=== PATIENT | male | born 1990 | race Two or more races ===

== ENCOUNTER 2018-02-10 10:04 | Inpatient (IN) | payer BC ==
[2018-02-10 10:32] VITALS: BMI 24.7
--- NOTE | 2018-02-10 12:31 | HP ---
Admission [facility] Chief Complaint: REHAB TX FOR DRUG ADDICTION Allergies/Adverse Reactions: Allergies Allergy/AdvReac Type Severity Reaction Status Date / Time No Known Allergies Allergy Verified 02/10/18 10:46 History of Present Illness: 27 Y/O MALE WITH A HX OF HEROIN,CRACK AND MARIJUANA DEPENDENCE SEEKING REHAB TX. PT REPORTS LAST USE OF OPIATE WAS 2 WEEKS AGO AND U-TOX IS NEGATIVE TODAY. PT REPORTS HE WAS REFERRED TO [place] BY HIS RESIDENCE- [facility] [place] [address] [place] [address]. Exam Limitations: No Limitations - Ebola screening Have you traveled outside of the country in the last 21 days: No (N) Have you had contact with anyone from an Ebola affected area: No Have you been sick,other than usual withdrawal symptoms: No Do you have a fever: No - Review of Systems Constitutional: No Symptoms Reported EENT: reports: Blurred Vision (DUE TO COGENTIN), Nose Congestion, Dental Problems (MISSING TEETH/CAVITY/ROOT CANAL) Respiratory: reports: No Symptoms reported Cardiac: reports: No Symptoms Reported GI: reports: Constipated : reports: Dysuria Musculoskeletal: reports: No Symptoms Reported Integumentary: reports: No Symptoms Reported Neuro: reports: No Symptoms reported Endocrine: reports: No Symptoms Reported Hematology: reports: No Symptoms Reported Psychiatric: reports: Orientated x3, Anxious, Depressed Other Systems: Reviewed and Negative Patient History - Patient Medical History Hx Anemia: No Hx Asthma: No Hx Chronic Obstructive Pulmonary Disease (COPD): No Hx Cardiac Disorders: No Hx Hypertension: No HX Cerebrovascular Accident: No Hx Seizures: No Hx Diabetes: No Hx Gastrointestinal Disorders: No Hx Genitourinary Disorders: No Hx Sexually Transmitted Disorders: No Hx Renal Disease (ESRD): No Hx Human Immunodeficiency Virus (HIV): No (NEGATIVE HX; WANTS TESTING) Hx Hepatitis C: No Hx Depression: Yes (ON MEDS) Hx Suicide Attempt: No (DENIES S/I) Hx Bipolar Disorder: No Hx Schizophrenia: Yes (WITH ROBINSON) - Patient Surgical History Past Surgical History: No Hx Neurologic Surgery: No Hx Cataract Extraction: No Hx Cardiac Surgery: No Hx Lung Surgery: No Hx Breast Surgery: No Hx Breast Biopsy: No Hx Abdominal Surgery: No Hx Appendectomy: No Hx Cholecystectomy: No Hx Genitourinary Surgery: No Hx Orthopedic Surgery: No Anesthesia Reaction: No - PPD History Previous Implant?: Yes Documented Results: Negative w/o proof Implanted On Prior [facility] Admission?: No PPD to be Administered?: Yes - Reproductive History Patient is a Female of Child Bearing Age (11 -55 yrs old): No (MALE) - Smoking Cessation Smoking history: Current every day smoker Have you smoked in the past 12 months: Yes Aproximately how many cigarettes per day: 10 Hx Chewing Tobacco Use: No Initiated information on smoking cessation: Yes 'Breaking Loose' booklet given: 02/03/18 - Substance & Tx. History Hx Alcohol Use: No (DENIES) Hx Substance Use: Yes (HEROIN/COCAINE/MARIJUANA) Substance Use Type: Cocaine, Heroin, Marijuana Hx Substance Use Treatment: No (NEVER BEEN IN TREATMENT) - Substances Abused Heroin Route: Inhalation Frequency: 1-3 times last 30 days Amount used: 1 bag Age of first use: Date of Last Use: 02/04/18 Crack Route: Smoking Frequency: Daily Amount used: 1/4 gm. Age of first use: 26 Date of Last Use: 02/06/18 Marijuana Route: Smoking Frequency: Daily Amount used: $5 Age of first use: Date of Last Use: 02/08/18 Family Disease History - Family Disease History Family History: Unable to Obtain Admission Physical Exam BHS - Vital Signs Vital Signs: Vital Signs - 24 hr 02/10/18 10:25 Temperature 97.0 F L Pulse Rate 65 Respiratory 18 Rate Blood Pressure 115/67 - Physical General Appearance: Yes: No Apparent Distress, Irritable, Anxious HEENTM: Yes: EOMI, Normocephalic, GILMAR, Pharynx Normal Respiratory: Yes: Chest Non-Tender, Lungs Clear, Normal Breath Sounds, No Respiratory Distress Neck: Yes: No masses,lesions,Nodules, Supple, Trachea in good position Breast: Yes: Breast Exam Deferred Cardiology: Yes: Regular Rhythm, Regular Rate, S1, S2 Abdominal: Yes: Normal Bowel Sounds, Non Tender, Flat, Soft Genitourinary: Yes: Other (N/C) Back: Yes: Within Normal Limits Musculoskeletal: Yes: full range of Motion, Gait Steady Extremities: Yes: Normal Range of Motion, Non-Tender Neurological: Yes: cast associate II-XII NML intact, Fully Oriented, Alert, Motor Strength 5/5 Integumentary: Yes: Dry, Warm Lymphatic: Yes: Within Normal Limits - Diagnostic (1) Uncomplicated opioid abuse Current Visit: Yes Status: Chronic (2) Cocaine dependence, uncomplicated Current Visit: Yes Status: Chronic (3) Cannabis dependence, uncomplicated Current Visit: Yes Status: Chronic (4) History of psychiatric disorder Current Visit: Yes Status: Acute Cleared for Admission [facility] - Detox or Rehab Claeared for Rehab Admission: Yes [facility] Breath Alcohol Content Breath Alcohol Content: 0 Urine Drug Screen - Results Urine Drug Screen Results: THC-Marijuana, ELISEO-Cocaine
[2018-02-10] MEDS ORDERED: MAGNESIUM HYDROX 2400MG/30ML ORAL SUSPENSION 30 ML CUP PO PRN (12:44)
[2018-02-10] MEDS ORDERED: MAGNESIUM CITRATE 300 ML BOTTLE PO PRN (12:44)
[2018-02-10] MEDS ORDERED: MAG HYDROX/AL HYDROX/SIMETH 30 ML UNIT-DOSE CUP PO PRN (12:44)
[2018-02-10] MEDS ORDERED: MENTHOL/PHENOL 1 EACH UD MM PRN (12:44)
[2018-02-10] MEDS ORDERED: ACETAMINOPHEN 325 MG TABLET (FP) PO PRN (12:44)
[2018-02-10] MEDS ORDERED: guaiFENesin/D-METHORPHAN HB 10 ML UNIT-DOSE CUPS PO PRN (12:44)
[2018-02-10] MEDS ORDERED: P-EPHED 60MG/TRIPROLIDI 2.5MG TABLET PO PRN (12:44)
[2018-02-10] MEDS ORDERED: LOPERAMIDE HCL 2 MG CAPSULE PO PRN (12:44)
--- NOTE | 2018-02-10 15:01 | PN ---
[facility] Progress Note Note: Psychiatrist note: Called by nursing staff for newly admitted patient from [facility]. External medication from pharmacy claims show scripts filled for following psychotropic medications: Depakote 500 mg po BID, Cogentin 2 mg po BID on 01/21/18 and Fluphenazine Decanoate 125 mg IM Q monthly on 01/01/18. Medications ordered for patient
[2018-02-10 15:02] LABS: HEMATOCRIT 43.2 % (35.4-49); HEMOGLOBIN 14.9 GM/dL (11.7-16.9); MCH 29.9 pg (25.7-33.7); MCHC 34.6 g/dl (32.0-35.9); MEAN CELL VOLUME 86.5 fl (80-96); PLATELET COUNT 249 K/MM3 (134-434); RBC 4.99 M/mm3 (4.00-5.60); RDW 14.7 % (11.9-15.9)
[2018-02-10 15:10] LABS: ANION GAP 5 MMOL/L (8-16); BLOOD UREA NITROGEN 13 mg/dL (7-18); CHLORIDE 104 mmol/L (98-107); CO2 30 mmol/L (21-32); GLUCOSE,RANDOM 82 mg/dL (74-106); POTASSIUM 4.4 mmol/L (3.5-5.1); SGPT/ALT 25 U/L (12-78); SODIUM 139 mmol/L (136-145)
[2018-02-10 15:16] LABS: ALK PHOS 77 U/L (45-117); BILIRUBIN,TOTAL 1.1 mg/dL (0.2-1.0); CREATININE 0.7 mg/dL (0.7-1.3); SGOT/AST 12 U/L (15-37); TOT PROT 7.6 g/dl (6.4-8.2)
[2018-02-10 15:34] LABS: SICKLE CELL SCREEN NEGATIVE (NEGATIVE)
[2018-02-10] MEDS: NICOTINE 14 MG/24 HOURS TOPICAL PATCH TD SCH (15:46)
[2018-02-10 20:50] LABS: URINE APPEARANCE CLEAR; URINE BILIRUBIN NEGATIVE (<2.0 mg/dL); URINE COLOR YELLOW; URINE GLUCOSE (UA) NEGATIVE (NEGATIVE); URINE KETONE TRACE (NEGATIVE); URINE LEUK ESTERASE NEGATIVE (NEGATIVE); URINE NITRITE NEGATIVE (NEGATIVE); URINE PROTEIN NEGATIVE (NEGATIVE); URINE UROBILINOGEN NEGATIVE mg/dL (0.2-1.0)
[2018-02-10] MEDS: BENZTROPINE MESYLATE 1 MG TABLET (FP) PO SCH (21:52)
[2018-02-10] MEDS: THIAMINE HCL 100 MG TABLET (FP) PO SCH (21:52)
[2018-02-10] MEDS: DIVALPROEX SODIUM 500 MG TABLET E.C. PO SCH (21:52)
[2018-02-10] MEDS: IBUPROFEN 400 MG TABLET (FP) PO PRN (21:53)
--- NOTE | 2018-02-11 08:40 | HP ---
Psychiatrist Admission - Data Date of interview: 02/11/18 Admission source: [facility] Identifying data: Patient is a 27 year old single male, without kids, unemployed , domiciled (lives in a residence). This is patient's first admission to rehab on [facility]. Pt. admitted to [facility] for cocaine dependence. Medical History: Denies. Psychiatric History: Patient reports multiple psychiatric hospitalizations, most recently two months ago at [facility] in [place]. Unable to recall the names of other facilites he was hospitalized in. Patient denies h/o psychiatric treatment as a teenager. Diagnosis of Schizophrenia. Pt. is followed by the ACT Team in the [place], [place]. Last saw the ACT team 2 weeks ago. Pt. is prescribed depakote 500mg BID, prolixen decanoate 125mg IM Q monthly (as per pharmacy claims it was last ordered on 01/01/18) , and cogentin 2mg BID. Pt. denies h/o suicide attempt. Physical/Sexual Abuse/Trauma History: denies. Vital Signs: Vital Signs - 24 hr 02/10/18 02/11/18 02/11/18 10:25 01:08 03:30 Temperature 97.0 F L Pulse Rate 65 Respiratory 18 20 18 Rate Blood Pressure 115/67 02/11/18 06:57 Temperature 96.7 F L Pulse Rate 56 L Respiratory 18 Rate Blood Pressure 92/58 Allergies/Adverse Reactions: Allergies Allergy/AdvReac Type Severity Reaction Status Date / Time No Known Allergies Allergy Verified 02/10/18 10:46 Date of last physical exam: 02/10/18 Concur with the findings of this exam: Yes - Substance Abuse/Tx History Hx Alcohol Use: No Hx Substance Use: Yes ($10 /day) Substance Use Type: Cocaine Hx Substance Use Treatment: No Mental Status Exam - Mental Status Exam Alert and Oriented to: Time, Place, Person Cognitive Function: Good Patient Appearance: Well Groomed Mood: Euthymic Affect: Mood Congruent Patient Behavior: Appropriate, Cooperative Speech Pattern: Appropriate Voice Loudness: Normal Thought Process: Intact, Flight of Ideas Thought Disorder: Not Present Hallucinations: Denies Suicidal Ideation: Denies Homicidal Ideation: Denies Insight/Judgement: Poor Sleep: Fair Appetite: Fair Muscle strength/Tone: Normal Gait/Station: Normal Psychiatric Findings - Problem List ([place] 1, 2,3) (1) Schizophrenia Current Visit: Yes Status: Chronic (2) Cannabis dependence, uncomplicated Current Visit: Yes Status: Chronic (3) Cocaine dependence, uncomplicated Current Visit: Yes Status: Chronic - Initial Treatment Plan Initial Treatment Plan: Psychoeducation provided. Detoxification in progress. Will continue with current medications of depakote 500mg BID + Cogentin 2mg BID. Benefits and side effects discussed. Verbal consent given. Medication verification of prolixen decanoate faxed to rehab. Pt. received prolixen decanonte 25mg bi weekly on 01/30. Prolixen deconate injection is due on .
[2018-02-11] MEDS: DIVALPROEX SODIUM 500 MG TABLET E.C. PO SCH ×2 (10:44→21:39)
[2018-02-11] MEDS: BENZTROPINE MESYLATE 1 MG TABLET (FP) PO SCH ×2 (10:44→21:39)
[2018-02-11] MEDS: PRENATAL VITAMINS W/ FOLIC ACID TABLET (FP) PO SCH (10:45)
[2018-02-11] MEDS: NICOTINE 14 MG/24 HOURS TOPICAL PATCH TD SCH (10:45)
[2018-02-11] MEDS: THIAMINE HCL 100 MG TABLET (FP) PO SCH (21:39)
[2018-02-12] MEDS: DIVALPROEX SODIUM 500 MG TABLET E.C. PO SCH ×2 (10:44→21:47)
[2018-02-12] MEDS: BENZTROPINE MESYLATE 1 MG TABLET (FP) PO SCH ×2 (10:45→21:47)
[2018-02-12] MEDS: NICOTINE 14 MG/24 HOURS TOPICAL PATCH TD SCH (10:45)
[2018-02-12] MEDS: PRENATAL VITAMINS W/ FOLIC ACID TABLET (FP) PO SCH (10:45)
--- NOTE | 2018-02-12 14:21 | PN ---
[facility] Progress Note Note: Vital Signs Temperature 97.0 F L 02/12/18 07:06 Pulse Rate 59 L 02/12/18 07:06 Respiratory Rate 18 02/12/18 07:06 Blood Pressure 107/69 02/12/18 07:06 O2 Sat by Pulse Oximetry (%) Patient had requested to see provider earlier today for leg pain. Upon assessment pain reported no pain or issues at this time. Patient stable, no distress, continue monitor.
--- NOTE | 2018-02-12 16:08 | EKG ---
Test Reason : Blood Pressure : / mmHG Vent. Rate : 065 BPM Atrial Rate : 065 BPM P-R Int : 154 ms QRS Dur : 094 ms QT Int : 390 ms P-R-T Axes : 049 084 053 degrees QTc Int : 405 ms NORMAL SINUS RHYTHM EARLY REPOLARIZATION NORMAL ECG NO PREVIOUS ECGS AVAILABLE Confirmed by Amrita Nava ([id number]) on 02/12/2018 4:07:48 PM Referred By: Confirmed By:Amrita Nava
[2018-02-12] MEDS: MELATONIN 5 MG TABLETS PO PRN (21:47)
[2018-02-12] MEDS: THIAMINE HCL 100 MG TABLET (FP) PO SCH (21:47)
--- NOTE | 2018-02-13 08:47 | PN ---
[facility] Progress Note Note: Psychiatric nurse practitioner note: Patient alert and oriented X3. Pt. made aware that his Prolixen decanoate 25mg bi weekly is due today. Verbal consent given to accept medication. Pt. reports feeling fine. Pt. denies auditory/visual hallucination. No psychosis noted. Will order prolixen decanoate 25mg. Nursing staff informed.
[2018-02-13] MEDS ORDERED: fluPHENAZine DECANOATE 125 MG/5ML VIAL IM ONE (09:15)
[2018-02-13] MEDS: BENZTROPINE MESYLATE 1 MG TABLET (FP) PO SCH ×2 (10:42→21:30)
[2018-02-13] MEDS: PRENATAL VITAMINS W/ FOLIC ACID TABLET (FP) PO SCH (10:43)
[2018-02-13] MEDS: DIVALPROEX SODIUM 500 MG TABLET E.C. PO SCH ×2 (10:43→21:30)
[2018-02-13] MEDS: NICOTINE 14 MG/24 HOURS TOPICAL PATCH TD SCH (10:43)
[2018-02-13] MEDS: THIAMINE HCL 100 MG TABLET (FP) PO SCH (21:30)
[2018-02-14] MEDS: NICOTINE 14 MG/24 HOURS TOPICAL PATCH TD SCH (10:28)
[2018-02-14] MEDS: DIVALPROEX SODIUM 500 MG TABLET E.C. PO SCH ×2 (10:28→21:34)
[2018-02-14] MEDS: BENZTROPINE MESYLATE 1 MG TABLET (FP) PO SCH ×2 (10:28→21:34)
[2018-02-14] MEDS: PRENATAL VITAMINS W/ FOLIC ACID TABLET (FP) PO SCH (10:29)
[2018-02-14] MEDS: hydrOXYzine PAMOATE 50 MG CAPSULE (FP) PO PRN (16:06)
[2018-02-14] MEDS: IBUPROFEN 400 MG TABLET (FP) PO PRN (18:36)
[2018-02-14] MEDS: THIAMINE HCL 100 MG TABLET (FP) PO SCH (21:34)
[2018-02-15] MEDS: PRENATAL VITAMINS W/ FOLIC ACID TABLET (FP) PO SCH (10:25)
[2018-02-15] MEDS: BENZTROPINE MESYLATE 1 MG TABLET (FP) PO SCH ×2 (10:25→21:31)
[2018-02-15] MEDS: DIVALPROEX SODIUM 500 MG TABLET E.C. PO SCH ×2 (10:25→21:31)
[2018-02-15] MEDS: NICOTINE 14 MG/24 HOURS TOPICAL PATCH TD SCH (10:26)
[2018-02-15] MEDS: THIAMINE HCL 100 MG TABLET (FP) PO SCH (21:31)
[2018-02-15] MEDS: MELATONIN 5 MG TABLETS PO PRN (23:31)
[2018-02-16] MEDS: PRENATAL VITAMINS W/ FOLIC ACID TABLET (FP) PO SCH (10:49)
[2018-02-16] MEDS: BENZTROPINE MESYLATE 1 MG TABLET (FP) PO SCH ×2 (10:49→21:59)
[2018-02-16] MEDS: DIVALPROEX SODIUM 500 MG TABLET E.C. PO SCH ×2 (10:49→21:59)
[2018-02-16] MEDS: NICOTINE 14 MG/24 HOURS TOPICAL PATCH TD SCH (10:50)
[2018-02-16] MEDS ORDERED: TUBERCULIN PPD 5 TU/0.1ML VIAL ID ONE (15:14)
[2018-02-16] MEDS: NICOTINE POLACRILEX 2 MG GUM BC PRN (18:03)
[2018-02-16] MEDS: THIAMINE HCL 100 MG TABLET (FP) PO SCH (21:59)
[2018-02-16] MEDS: MELATONIN 5 MG TABLETS PO PRN (22:00)
[2018-02-16] MEDS: hydrOXYzine PAMOATE 50 MG CAPSULE (FP) PO PRN (22:00)
[2018-02-17] MEDS: NICOTINE 14 MG/24 HOURS TOPICAL PATCH TD SCH (10:34)
[2018-02-17] MEDS: DIVALPROEX SODIUM 500 MG TABLET E.C. PO SCH ×2 (10:34→21:32)
[2018-02-17] MEDS: PRENATAL VITAMINS W/ FOLIC ACID TABLET (FP) PO SCH (10:34)
[2018-02-17] MEDS: BENZTROPINE MESYLATE 1 MG TABLET (FP) PO SCH ×2 (10:34→21:32)
[2018-02-17] MEDS: THIAMINE HCL 100 MG TABLET (FP) PO SCH (21:32)
[2018-02-17] MEDS: MELATONIN 5 MG TABLETS PO PRN (21:33)
[2018-02-17] MEDS: IBUPROFEN 400 MG TABLET (FP) PO PRN (23:33)
[2018-02-18] MEDS: DIVALPROEX SODIUM 500 MG TABLET E.C. PO SCH ×2 (10:23→21:38)
[2018-02-18] MEDS: PRENATAL VITAMINS W/ FOLIC ACID TABLET (FP) PO SCH (10:23)
[2018-02-18] MEDS: NICOTINE 14 MG/24 HOURS TOPICAL PATCH TD SCH (10:23)
[2018-02-18] MEDS: BENZTROPINE MESYLATE 1 MG TABLET (FP) PO SCH ×2 (10:24→21:38)
[2018-02-18] MEDS: THIAMINE HCL 100 MG TABLET (FP) PO SCH (21:39)
[2018-02-18] MEDS: MELATONIN 5 MG TABLETS PO PRN (21:39)
[2018-02-19] MEDS: PRENATAL VITAMINS W/ FOLIC ACID TABLET (FP) PO SCH (10:39)
[2018-02-19] MEDS: BENZTROPINE MESYLATE 1 MG TABLET (FP) PO SCH ×2 (10:39→21:47)
[2018-02-19] MEDS: DIVALPROEX SODIUM 500 MG TABLET E.C. PO SCH ×2 (10:39→21:47)
[2018-02-19] MEDS: NICOTINE 14 MG/24 HOURS TOPICAL PATCH TD SCH (10:42)
--- NOTE | 2018-02-19 13:25 | PN ---
S Progress Note Note: Vital Signs Temperature 97.7 F 02/19/18 07:40 Pulse Rate 72 02/19/18 07:40 Respiratory Rate 18 02/19/18 07:40 Blood Pressure 111/79 02/19/18 07:40 O2 Sat by Pulse Oximetry (%) c/o of ulcer on the right bottom of tongue + aphthous ulcer lidocaine viscus prn continue to monitor
[2018-02-19] MEDS: LIDOCAINE VISCOUS 2% ORAL/TOP 100 ML BOTTLE MM PRN ×2 (16:02→22:02)
--- NOTE | 2018-02-19 17:03 | PN ---
Psychiatric Progress Note Vital Signs: Vital Signs Period Temp Pulse Resp BP Sys/Hope Pulse Ox Last 24 Hr 97.7 F 72 18-18 111/79 Date of Session: 02/19/18 Chief Complaint:: "Discharge" HPI: Pt. admitted to for cocaine dependence. ROS: denies. Current Medications: Active Medications Generic Name Dose Route Start Last Admin Trade Name Freq PRN Reason Stop Dose Admin Acetaminophen 650 mg 02/10/18 12:44 Tylenol - PO Q4H PRN FEVER Al Hydroxide/Mg Hydroxide 30 ml 02/10/18 12:44 Mylanta Oral Suspension - PO Q6H PRN DYSPEPSIA Benztropine Mesylate 2 mg 02/10/18 22:00 02/19/18 10:39 Cogentin - PO 2 mg BID JOVITA Administration Divalproex Sodium 500 mg 02/10/18 22:00 02/19/18 10:39 Depakote - PO 500 mg BID JOVITA Administration Eucalyptus/Menthol/Phenol/Sorbitol 1 each 02/10/18 12:44 Cepastat Lozenge - MM Q4H PRN SORE THROAT Guaifenesin 10 ml 02/10/18 12:44 Robitussin Dm - PO Q6H PRN COUGH Hydroxyzine Pamoate 50 mg 02/10/18 12:44 02/16/18 22:00 Vistaril - PO 50 mg Q4H PRN Administration AGITATION Ibuprofen 400 mg 02/10/18 12:44 02/17/18 23:33 Motrin - PO 400 mg Q6H PRN Administration Pain level 4-6 Lidocaine HCl 15 ml 02/19/18 13:21 02/19/18 16:02 Xylocaine 2% Viscous MM 15 ml Q6H PRN Administration aphthous ulcer Loperamide HCl 4 mg 02/10/18 12:44 Imodium - PO Q6H PRN DIARRHEA Magnesium Citrate 300 ml 02/10/18 12:44 Citroma - PO Q48H PRN CONSTIPATION Magnesium Hydroxide 30 ml 02/10/18 12:44 Milk Of Magnesia - PO DAILY PRN CONSTIPATION Melatonin 5 mg 02/10/18 22:00 02/18/18 21:39 Melatonin PO 5 mg HS PRN Administration INSOMNIA Nicotine 14 mg 02/10/18 13:45 02/19/18 10:42 Nicoderm Patch - TD Not Given DAILY JOVITA Nicotine Polacrilex 2 mg 02/10/18 12:44 02/16/18 18:03 Nicorette Gum - BC 2 mg Q2H PRN Administration NICOTINE REPLACEMENT RX Multivit/Folic Acid/Iron 1 tab 02/11/18 10:00 02/19/18 10:39 Vitamins ([facility]) - PO 1 tab DAILY JOVITA Administration Pseudoephedrine/Triprolidine 1 combo 02/10/18 12:44 Actifed - PO TID PRN NASAL CONGESTION Thiamine HCl 100 mg 02/10/18 22:00 02/18/18 21:39 Vitamin B1 - PO 100 mg HS JOVITA Administration Medication(s) Change(s): No. Current Side Effect: No Lab tests ordered: No Lab tests reviewed: Yes Provider note:: Patient will complete the rehabilitation program on 02/20/18. He has met his treatment goals and is able to identify behaviors that contribute to relapsing. Through participation of this program patient has learned the importance of changing his behaviors and the need for more structure in his life. Pt. responded well to Depakote 500mg BID + Cogentin 2mg BID + prolixen decanoate 25mg (received on 02/13/18). Pt. will be discharge to his residence [facility]. Pt. does not require a prescriptions of his medications as he is given his medications daily at his residence. Pt. is stable for discharge on 02/20/18. Total face to face time:: 35 Mental Status Exam - Mental Status Exam Alert and Oriented to: Time, Place, Person Cognitive Function: Good Patient Appearance: Well Groomed Mood: Euthymic Affect: Appropriate Patient Behavior: Appropriate, Cooperative Speech Pattern: Appropriate Voice Loudness: Normal Thought Process: Intact, Goal Oriented Thought Disorder: Not Present Hallucinations: Denies Suicidal Ideation: Denies Homicidal Ideation: Denies Psychiatric Treatment Plan - Problem List (1) Schizophrenia Current Visit: Yes (2) Cannabis dependence, uncomplicated Current Visit: Yes (3) Cocaine dependence, uncomplicated Current Visit: Yes
[2018-02-19] MEDS: NICOTINE POLACRILEX 2 MG GUM BC PRN (17:55)
[2018-02-19] MEDS: THIAMINE HCL 100 MG TABLET (FP) PO SCH (21:47)
[2018-02-19] MEDS: MELATONIN 5 MG TABLETS PO PRN (21:48)
[2018-02-20] MEDS: BENZTROPINE MESYLATE 1 MG TABLET (FP) PO SCH ×2 (09:22→21:31)
[2018-02-20] MEDS: DIVALPROEX SODIUM 500 MG TABLET E.C. PO SCH ×2 (09:22→21:31)
[2018-02-20] MEDS: PRENATAL VITAMINS W/ FOLIC ACID TABLET (FP) PO SCH (09:22)
[2018-02-20] MEDS: NICOTINE 14 MG/24 HOURS TOPICAL PATCH TD SCH (09:23)
[2018-02-20] MEDS: LIDOCAINE VISCOUS 2% ORAL/TOP 100 ML BOTTLE MM PRN ×2 (09:24→21:31)
[2018-02-20] MEDS: MELATONIN 5 MG TABLETS PO PRN (21:31)
[2018-02-20] MEDS: THIAMINE HCL 100 MG TABLET (FP) PO SCH (21:31)
[2018-02-21] MEDS: PRENATAL VITAMINS W/ FOLIC ACID TABLET (FP) PO SCH (10:50)
[2018-02-21] MEDS: DIVALPROEX SODIUM 500 MG TABLET E.C. PO SCH ×2 (10:50→21:47)
[2018-02-21] MEDS: BENZTROPINE MESYLATE 1 MG TABLET (FP) PO SCH ×2 (10:50→21:46)
[2018-02-21] MEDS: NICOTINE 14 MG/24 HOURS TOPICAL PATCH TD SCH (10:51)
[2018-02-21] MEDS: MELATONIN 5 MG TABLETS PO PRN (21:47)
[2018-02-21] MEDS: THIAMINE HCL 100 MG TABLET (FP) PO SCH (21:47)
[2018-02-22] MEDS: NICOTINE 14 MG/24 HOURS TOPICAL PATCH TD SCH (10:08)
[2018-02-22] MEDS: BENZTROPINE MESYLATE 1 MG TABLET (FP) PO SCH ×2 (10:08→21:39)
[2018-02-22] MEDS: PRENATAL VITAMINS W/ FOLIC ACID TABLET (FP) PO SCH (10:08)
[2018-02-22] MEDS: DIVALPROEX SODIUM 500 MG TABLET E.C. PO SCH ×2 (10:08→21:39)
[2018-02-22] MEDS: THIAMINE HCL 100 MG TABLET (FP) PO SCH (21:39)
[2018-02-22] MEDS: MELATONIN 5 MG TABLETS PO PRN (21:40)
[2018-02-23] MEDS: PRENATAL VITAMINS W/ FOLIC ACID TABLET (FP) PO SCH (10:22)
[2018-02-23] MEDS: NICOTINE 14 MG/24 HOURS TOPICAL PATCH TD SCH (10:22)
[2018-02-23] MEDS: BENZTROPINE MESYLATE 1 MG TABLET (FP) PO SCH ×2 (10:22→21:47)
[2018-02-23] MEDS: DIVALPROEX SODIUM 500 MG TABLET E.C. PO SCH ×2 (10:22→21:47)
[2018-02-23] MEDS: MELATONIN 5 MG TABLETS PO PRN (21:47)
[2018-02-23] MEDS: THIAMINE HCL 100 MG TABLET (FP) PO SCH (21:47)
[2018-02-24 06:52] VITALS: BP 107/60; PULSE 62; TEMP 97.7
[2018-02-24] MEDS: NICOTINE 14 MG/24 HOURS TOPICAL PATCH TD SCH (10:58)
[2018-02-24] MEDS: BENZTROPINE MESYLATE 1 MG TABLET (FP) PO SCH (10:58)
[2018-02-24] MEDS: DIVALPROEX SODIUM 500 MG TABLET E.C. PO SCH (10:58)
[2018-02-24] MEDS: PRENATAL VITAMINS W/ FOLIC ACID TABLET (FP) PO SCH (10:58)
--- NOTE | 2018-02-24 17:58 | PN ---
Psychiatric Progress Note Vital Signs: Vital Signs Period Temp Pulse Resp BP Sys/Hope Pulse Ox Last 24 Hr 97.7 F 62 16-18 107/60 Date of Session: 02/24/18 Chief Complaint:: "Discharge" HPI: Patient was admitted to for cocaine dependence. ROS: denies. Current Medications: Active Medications Generic Name Dose Route Start Last Admin Trade Name Freq PRN Reason Stop Dose Admin Acetaminophen 650 mg 02/10/18 12:44 Tylenol - PO Q4H PRN FEVER Al Hydroxide/Mg Hydroxide 30 ml 02/10/18 12:44 Mylanta Oral Suspension - PO Q6H PRN DYSPEPSIA Benztropine Mesylate 2 mg 02/10/18 22:00 02/24/18 10:58 Cogentin - PO 2 mg BID JOVITA Administration Divalproex Sodium 500 mg 02/10/18 22:00 02/24/18 10:58 Depakote - PO 500 mg BID JOVITA Administration Eucalyptus/Menthol/Phenol/Sorbitol 1 each 02/10/18 12:44 Cepastat Lozenge - MM Q4H PRN SORE THROAT Guaifenesin 10 ml 02/10/18 12:44 Robitussin Dm - PO Q6H PRN COUGH Hydroxyzine Pamoate 50 mg 02/10/18 12:44 02/16/18 22:00 Vistaril - PO 50 mg Q4H PRN Administration AGITATION Ibuprofen 400 mg 02/10/18 12:44 02/17/18 23:33 Motrin - PO 400 mg Q6H PRN Administration Pain level 4-6 Lidocaine HCl 15 ml 02/19/18 13:21 02/20/18 21:31 Xylocaine 2% Viscous MM 15 ml Q6H PRN Administration aphthous ulcer Loperamide HCl 4 mg 02/10/18 12:44 Imodium - PO Q6H PRN DIARRHEA Magnesium Citrate 300 ml 02/10/18 12:44 Citroma - PO Q48H PRN CONSTIPATION Magnesium Hydroxide 30 ml 02/10/18 12:44 Milk Of Magnesia - PO DAILY PRN CONSTIPATION Melatonin 5 mg 02/10/18 22:00 02/23/18 21:47 Melatonin PO 5 mg HS PRN Administration INSOMNIA Nicotine 14 mg 02/10/18 13:45 02/24/18 10:58 Nicoderm Patch - TD Not Given DAILY JOVITA Nicotine Polacrilex 2 mg 02/10/18 12:44 02/19/18 17:55 Nicorette Gum - BC 2 mg Q2H PRN Administration NICOTINE REPLACEMENT RX Multivit/Folic Acid/Iron 1 tab 02/11/18 10:00 02/24/18 10:58 Vitamins ([facility]) - PO 1 tab DAILY JOVITA Administration Pseudoephedrine/Triprolidine 1 combo 02/10/18 12:44 Actifed - PO TID PRN NASAL CONGESTION Thiamine HCl 100 mg 02/10/18 22:00 02/23/18 21:47 Vitamin B1 - PO 100 mg HS JOVITA Administration Medication(s) Change(s): No. Current Side Effect: No Lab tests ordered: No Lab tests reviewed: Yes Provider note:: Patient requesting early discharge on 02/24/18. Pt. able to complete 14 days of rehab. He has met his treatment goals and is able to identify behaviors that contribute to relapsing. Through participation of this program patient has learned the importance of changing his behaviors and the need for more structure in his life. Pt. is alert and oriented X3. Pt. is coherent and is motivated to continue abstinence from his substance abuse. Pt. responded well to Depakote 500mg BID + Cogentin 2mg BID + prolixen decanoate 25mg (received on 02/13/18). Pt. will be discharge to [facility] in the [place], [place] and will continue psychiatric follow up with ACT Team. A prescription of medication will not be needed as patient receives his medications daily from [facility]. Pt. is stable for discharge on 02/24/18. Total face to face time:: 35 Mental Status Exam - Mental Status Exam Alert and Oriented to: Time, Place, Person Cognitive Function: Good Patient Appearance: Well Groomed Mood: Hopeful Affect: Appropriate Patient Behavior: Appropriate, Cooperative Speech Pattern: Clear, Appropriate Voice Loudness: Normal Thought Process: Intact, Goal Oriented Thought Disorder: Not Present Hallucinations: Denies Suicidal Ideation: Denies Homicidal Ideation: Denies Insight/Judgement: Good Sleep: Well Appetite: Good Muscle strength/Tone: Normal Gait/Station: Normal Psychiatric Treatment Plan - Problem List (1) Schizophrenia Current Visit: Yes (2) Cannabis dependence, uncomplicated Current Visit: Yes (3) Cocaine dependence, uncomplicated Current Visit: Yes
== END 2018-02-24 18:40 | disposition home or self-care (01) | DRG 772 ==
LOC: YASAS 10:04 → Y5N 13:02
PROVIDERS: ADMIT Psychiatry & Neurology Psychiatry; ATTEND Psychiatry & Neurology Psychiatry
PROC: HZ42ZZZ Group Counseling for Substance Abuse Treatment, Cognitive-Behavioral (ICD-10-PCS; principal; 2018-02-10)
DX: F14.20 Cocaine dependence, uncomplicated (principal); F12.20 Cannabis dependence, uncomplicated; F11.10 Opioid abuse, uncomplicated; F17.210 Nicotine dependence, cigarettes, uncomplicated; F20.9 Schizophrenia, unspecified; F32.9 Major depressive disorder, single episode, unspecified; K12.0 Recurrent oral aphthae
CPT/HCPCS: 36415; 80053; 80164; 81003; 85027; 85660; 86593; 87389; 93005; 93010